=== PATIENT | female | born 1950 | race Asian ===

== ENCOUNTER 2018-12-17 11:00 | Inpatient (IN) | payer SELFPAY ==
[~2018-12-17] VITALS: Ht 149.9 cm; Wt 52.6 kg
--- NOTE | 2018-12-17 11:13 | NUR ---
Patient transferred to bed 8 via wheelchair after providing a urine specimen. RN evaluating patient at bedside.
[2018-12-17 11:20] VITALS: BP 109/58
[2018-12-17] MEDS ORDERED: NACL 0.9% 1,000 ML IV SCH (12:12)
[2018-12-17] MEDS ORDERED: NACL 0.9% 1,000 ML IV ONE (12:12)
[2018-12-17] MEDS ORDERED: ONDANSETRON 4 MG/2 ML VIAL IVP ONE (12:15)
[2018-12-17] MEDS ORDERED: MORPHINE SULFATE 2 MG/ML SYR IVP ONE (12:15)
[2018-12-17] MEDS ORDERED: PIPERACILLIN/TAZOBACTAM 3.375 GM in DEXT 5% MINI-BAG PLUS 50 ML IV ONE (12:15)
[2018-12-17] MEDS ORDERED: KETOROLAC 30 MG/ML VIAL IVP ONE (12:15)
--- NOTE | 2018-12-17 12:21 | NUR ---
X-Ray at bedside.
[2018-12-17] MEDS ORDERED: PIPERACILLIN/TAZOBACTAM 3.375 GM VIAL IV ONE (12:36)
[2018-12-17 12:38] LABS: BASOPHILS % (AUTO) 0.3 % (0.0-2.0); EOSINOPHILS # (AUTO) 0.1 K/uL (0-0.4); EOSINOPHILS % (AUTO) 2.4 % (0.0-4.0); HEMATOCRIT 40.5 % (36-48); HEMOGLOBIN 13.8 g/dL (12.0-16.0); LYMPHOCYTES # (AUTO) 1.4 K/uL (2.5-16.5); LYMPHOCYTES % (AUTO) 32.4 % (20.5-51.1); MEAN CORPUSCULAR HEMOGLOBIN 32 pg (27-31); MEAN CORPUSCULAR HGB CONC 34 g/dL (33-37); MEAN CORPUSCULAR VOLUME 92.8 fL (80-94); MONOCYTES # (AUTO) 0.3 K/uL (0.8-1.0); MONOCYTES % (AUTO) 7.7 % (1.7-9.3); NEUTROPHILS # (AUTO) 2.6 K/uL (1.8-7.7); NEUTROPHILS % (AUTO) 57.2 % (42.2-75.2); PLATELET COUNT (AUTO) 271 K/uL (140-450); RED BLOOD CELL COUNT(AUTO) 4.36 MIL/uL (4.20-5.40); RED CELL DISTRIBUTION WIDTH 12.9 % (11.6-13.7); WHITE BLOOD COUNT (AUTO) 4.5 K/uL (4.8-10.8)
--- NOTE | 2018-12-17 12:42 | NUR ---
Patient taken to CT scan via gurney by [employer].
[2018-12-17 12:46] LABS: APPEARANCE,URINE CLEAR (CLEAR); BILIRUBIN,URINE NEGATIVE (NEGATIVE); BLOOD, URINE NEGATIVE (NEGATIVE); COLOR,URINE YELLOW (YELLOW); LEUKOCYTE ESTERASE ,URINE NEGATIVE (NEGATIVE); NITRITE, URINE NEGATIVE (NEGATIVE); UGLUCOSE NEGATIVE (NEGATIVE)
[2018-12-17 13:13] LABS: ALBUMIN 3.7 g/dL (3.4-5.0); CARBON DIOXIDE 29.1 mmol/L (21-32); CREATININE 0.8 mg/dL (0.6-1.3); TOTAL BILIRUBIN 0.5 mg/dL (0.0-1.0)
[2018-12-17 13:21] LABS: ANION GAP 8.9 (8-16)
[2018-12-17] MEDS ORDERED: HYDROcodone/APAP 5/325 MG 1 TAB TAB PO PRN (14:20)
[2018-12-17] MEDS ORDERED: DOCUSATE SODIUM 100 MG GELCAP PO PRN (14:20)
[2018-12-17] MEDS ORDERED: ACETAMINOPHEN 325 MG TAB PO PRN (14:20)
[2018-12-17] MEDS ORDERED: KETOROLAC 15 MG/ML VIAL IVP PRN (14:20)
[2018-12-17] MEDS ORDERED: ONDANSETRON 4 MG/2 ML VIAL IM/IVP PRN (14:20)
[2018-12-17] MEDS ORDERED: MELATONIN 3 MG TAB PO PRN (14:40)
--- NOTE | 2018-12-17 15:00 | NUR ---
RECEIVED BEDSIDE REPORT FROM [facility] ED RN, PT CAME TO UNIT ON GURNEY, PT AWAKE ALERT ORIENTED X4, SKIN INTACT, PINK, DRY, PT ABLE TO AMBULATE FROM HALLWAY TO BED WITH NO PAIN OR RESPIRATORY DISTRESS, IV ON L AC 22G, FLUSHES WELL, STARTED NS RUNNING 90ML/HR, NPO EXCEPT MEDS, BOWEL SOUND ACTIVE X4 QUADRANTS, LAST BM THIS AM, SON AT BEDSIDE BUT UNABLE TO TRANSLATE. UTILIZED [employer] HUMAN RESOURCES MANAGER TO COMMUNICATE WITH PT AND FAMILY TO OBTAIN MED HX, ORIENTED TO ROOM AND UNIT, CALL LIGHT WITHIN REACH, BED LOW, BED ALARM ON, RETURN DEMONSTRATION TO CALL LIGHT GOOD, WILL CONTINUE TO MONITOR
--- NOTE | 2018-12-17 15:25 | NUR ---
Patient will be admitted to care of Dr Tiwari. Admited to M/S room 128b. Belongings list completed. Report to APRYL Salgado.
[2018-12-17] MEDS: NACL 0.9% 1,000 ML IV SCH ×2 (15:30→23:48)
[2018-12-17 15:36] LABS: BARBITURATE, URINE NEG. ng/ml (NEG <=200); BENZODIAZEPINE, URINE NEG. ng/mL (NEG <=200); CANNABINOID, URINE NEG. ng/mL (NEG <=50); COCAINE, URINE NEG. ng/mL (NEG <=300); OPIATE, URINE NEG. ng/mL (NEG <=2000); PHENCYCLIDINE SCREEN,URINE NEG. ng/mL (NEG <=25)
[2018-12-17 15:52] LABS: PHOSPHORUS 3.2 mg/dL (2.5-4.9); THYROID STIMULATING HORMONE 1.07 uIU/mL (0.34-3.74)
[2018-12-17] MEDS ORDERED: PNEUMOCOCCAL VACCINE 23 MCG/0.5 ML VIAL IMVAC SCH (19:25)
--- NOTE | 2018-12-17 19:30 | NUR ---
RECEIVED BEDSIDE REPORT FROM DAY SHIFT RN ZAIRE. PATIENT IN BED, SON AT BEDSIDE, PATIENT FIJIAN SPEAKING. ON RA, NO SIGNS OF ACUTE DISTRESS OR PAIN. IV IN LEFT FA 18 G INFUSING NS AT. PATIENT TO BE NPO STATUS AT THIS TIME, CALL LIGHT WITHIN REACH, WILL CONTINUE TO MONITOR.
--- NOTE | 2018-12-17 19:37 | NUR ---
GAVE BEDSIDE REPORT TO PROPERTY ECONOMIST RN, PT IN STABLE CONDITION, CALL LIGHT WITHIN REACH
[2018-12-17] MEDS: metroNIDAZOLE 500 MG/NS PREMIX 100 ML IV SCH (20:58)
--- NOTE | 2018-12-17 20:58 | NUR ---
DUE FLAGYL GIVEN
--- NOTE | 2018-12-17 23:00 | NUR ---
PATIENT RESTING IN BED NO SIGNS OF DISTRESS, WILL CONTINUE TO MONITOR
[2018-12-17 23:47] VITALS: BP 124/75
--- NOTE | 2018-12-17 23:54 | NUR ---
V/S STABLE NO SIGNS OF PAIN WILL CONTINUE TO MONITOR
--- NOTE | 2018-12-18 01:39 | NUR ---
PT SLEEPING IN BED. NO SIGNS OF DISTRESS OR DISCOMFORT. EASILY AROUSABLE. NO COMPLAINTS AT THIS TIME. WILL CONTINUE TO MONITOR. CALL LIGHT WITHIN REACH.
--- NOTE | 2018-12-18 03:08 | NUR ---
PT IS SLEEPING IN BED. NO SIGNS OF DISTRESS OR DISCOMFORT. EASILY AROUSABLE. NO COMPLAINTS AT THIS TIME. WILL CONTINUE TO MONITOR. CALL LIGHT WITHIN REACH.
[2018-12-18] MEDS: metroNIDAZOLE 500 MG/NS PREMIX 100 ML IV SCH (04:04)
--- NOTE | 2018-12-18 04:07 | NUR ---
GAVE SCHEDULED FLAGYL. EDUCATED PT. TOLERATED WELL. WILL CONTINUE TO MONITOR. CALL LIGHT WITHIN REACH.
--- NOTE | 2018-12-18 06:06 | NUR ---
PATIENT AMBULATED TO RESTROOM, STEADY GAIT. ASSISTED BACK INTO BED.
[2018-12-18 07:05] LABS: BASOPHILS % (AUTO) 0.3 % (0.0-2.0); EOSINOPHILS # (AUTO) 0.1 K/uL (0-0.4); EOSINOPHILS % (AUTO) 3.3 % (0.0-4.0); HEMATOCRIT 37.3 % (36-48); HEMOGLOBIN 12.7 g/dL (12.0-16.0); LYMPHOCYTES # (AUTO) 1.4 K/uL (2.5-16.5); LYMPHOCYTES % (AUTO) 34.5 % (20.5-51.1); MEAN CORPUSCULAR HEMOGLOBIN 32 pg (27-31); MEAN CORPUSCULAR HGB CONC 34 g/dL (33-37); MEAN CORPUSCULAR VOLUME 92.4 fL (80-94); MONOCYTES # (AUTO) 0.4 K/uL (0.8-1.0); MONOCYTES % (AUTO) 8.7 % (1.7-9.3); NEUTROPHILS # (AUTO) 2.2 K/uL (1.8-7.7); NEUTROPHILS % (AUTO) 53.2 % (42.2-75.2); PLATELET COUNT (AUTO) 227 K/uL (140-450); RED BLOOD CELL COUNT(AUTO) 4.04 MIL/uL (4.20-5.40); WHITE BLOOD COUNT (AUTO) 4.1 K/uL (4.8-10.8)
--- NOTE | 2018-12-18 07:07 | NUR ---
ENDORSED PATIENT TO DAY SHIFT NURSE ZAIRE, PATIENT IN BED, STABLE.
--- NOTE | 2018-12-18 07:08 | NUR ---
RECEIVED BEDSIDE REPORT FROM SOLAR SALES CONSULTANT RN, PT RESTING COMFORTABLY IN BED IN NO PAIN, SHOWED PT WONKER DYER PAIN SCALE AND PT POINTED TO 0 PAIN FACE, ON RA IN NO RESPIRATORY DISTRESS, IV SITE L AC RUNNING NS AT 90ML/HR, SITE LOOKS CLEAN AND DRY, PT CONTINUES TO BE NPO EXCEPT MEDS, CALL LIGHT WITHIN REACH
[2018-12-18 07:46] LABS: MAGNESIUM 2.1 mg/dL (1.8-2.4); PHOSPHORUS 2.5 mg/dL (2.5-4.9)
[2018-12-18 08:00] VITALS: BP 125/74
[2018-12-18] MEDS ORDERED: LACTOBACILLUS RHAMNOSUS GG 1 EACH CAP PO SCH (09:00)
[2018-12-18 09:01] LABS: ANION GAP 12.9 (8-16); CARBON DIOXIDE 24.4 mmol/L (21-32); CREATININE 0.8 mg/dL (0.6-1.3); POTASSIUM 4.3 mmol/L (3.5-5.1)
[2018-12-18 09:08] LABS: CHOL/HDL RATIO 4.7 (1-4.5)
--- NOTE | 2018-12-18 09:45 | NUR ---
Received call from service clerk from Dr. Palmer's office informing nurse that pt has a scheduled f/u appt with Dr. Palmer on 12/25/18 @ 4pm. [employer] also inquiring about pt's insurance. Per pt's records she is "self-pay". Per service clerk, pt will need to pay 60$ to see the doctor. [employer] requests to inform pt to bring [employer] dry wall finisher during appt. Will notify pt.
--- NOTE | 2018-12-18 11:45 | NUR ---
VERBAL AND WRITTEN DC INSTRUCTIONS GIVEN TO PT AND SON VIA [employer] CLIENT CARE MANAGER, PT AND SON AGREED WITH DC PLAN. L AC IV DC, PNEUMOCOCCAL VACCINE GIVEN L DELTOID, NAME BAND REMOVED, ALL BELONGINGS WITH PT. DC TO HOME BY PRIVATE VEHICLE. PT AMBULATED OFF UNIT WITH STEADY GAIT.
== END 2018-12-18 11:45 | disposition home or self-care (01) | DRG 392 ==
LOC: MED 11:00 → MMU 14:31 → MTU 20:05
PROVIDERS: ADMIT General Practice; ATTEND General Practice
PROC: 3E0234Z Introduction of Serum, Toxoid and Vaccine into Muscle, Percutaneous Approach (ICD-10-PCS; principal; 2018-12-17)
DX: R10.9 Unspecified abdominal pain (principal); E87.1 Hypo-osmolality and hyponatremia; G47.00 Insomnia, unspecified; E78.00 Pure hypercholesterolemia, unspecified; M81.0 Age-related osteoporosis without current pathological fracture; E78.5 Hyperlipidemia, unspecified; E87.8 Other disorders of electrolyte and fluid balance, not elsewhere classified; E83.51 Hypocalcemia; J84.10 Pulmonary fibrosis, unspecified; Z82.3 Family history of stroke; Z23 Encounter for immunization
CPT/HCPCS: 36415; 36600; 71045; 71250; 76705; 80048; 80053; 80305; 81003; 82150; 82803; 83036; 83605; 83690; 83735; 83880; 84100; 84443; 84484; 85025; 87040; 87081; 87086; 90732; 93005; 96365; 96375; 99285; J0696; J1885; J2270; J2405; J2543; J3490; J7030; J7060; Q0092

== ENCOUNTER 2020-06-01 08:43 | Day surgery (SDC) | payer MEDICARE, OTHER, SELFPAY ==
[~2020-06-01] VITALS: Ht 152.4 cm; Wt 48.5 kg
[2020-06-01] MEDS ORDERED: fentaNYL citrate 0.05 MG/ML VIAL ONE (09:44)
[2020-06-01] MEDS ORDERED: MIDAZOLAM 5 MG/5 ML VIAL ONE (09:44)
[2020-06-01] MEDS ORDERED: diphenhydrAMINE 50 MG/ML VIAL ONE (09:44)
[2020-06-01] MEDS ORDERED: LIDOCAINE 2% 100 MG/5 ML UJET TP ONE (09:44)
[2020-06-01] MEDS ORDERED: MIDAZOLAM 2 MG/2 ML VIAL IVP ONE (13:25)
[2020-06-01] MEDS ORDERED: fentaNYL citrate 0.05 MG/ML VIAL IVP ONE (13:25)
== END 2020-06-01 10:35 | disposition home or self-care (01) ==
LOC: MDS 08:43 → MMU 08:44 → MDS 10:35
PROVIDERS: ATTEND Internal Medicine Gastroenterology
DX: R10.9 Unspecified abdominal pain (principal); I10 Essential (primary) hypertension; E78.5 Hyperlipidemia, unspecified; Z20.828 Contact with and (suspected) exposure to other viral communicable diseases
CPT/HCPCS: 45378; J2250; J3010; U0003; J1200

== ENCOUNTER 2020-11-08 07:55 | Emergency (ER) | payer MEDICARE, OTHER ==
[~2020-11-08] VITALS: Ht 152.4 cm; Wt 49.9 kg
[2020-11-08 07:57] VITALS: BP 156/85
--- NOTE | 2020-11-08 08:13 | NUR ---
PT W/C ASSISTED TO BED 11.
--- NOTE | 2020-11-08 08:13 | NUR ---
Patient being evaluated by DR CONDE at bedside.
[2020-11-08] MEDS ORDERED: KETOROLAC 60 MG/2 ML VIAL IM ONE (08:20)
--- NOTE | 2020-11-08 08:26 | NUR ---
70 y/o F coming in from home with c/c left hip pain. Patient states 10/10, dull/constant, left hip pain that radiates down her left thigh. Patient states this pain as sudden onset three days ago, and worsens when walking. Patient states pain is relieved by lying on unaffected side. Pt denies taking any medication prior to arrival. Pt denies any falls, trauma/injury, N/V/D, fever, chills, urinary symptoms, chest pain, shortness of breath. Pt placed onto blood pressure cuff, pulse ox. Bed locked in lowest position, side rails x 1. Dr. Angeles evaluating patient at this time. PMH: HDL, osteoporeosis Meds: Gabapentin, naproxen, Baclofen, fenofibrate NKA Sx: Denies
[2020-11-08] MEDS ORDERED: ACET-8386 PO (08:30)
--- NOTE | 2020-11-08 09:24 | NUR ---
Patient verbalized no pain at this time while lying on right side. States 0/10 pain.
[2020-11-08 09:35] VITALS: BP 147/72
--- NOTE | 2020-11-08 09:35 | NUR ---
Patient discharged with v/s stable. Written and verbal after care instructions given and explained. Patient alert, oriented and verbalized understanding of instructions. Wheel Chair Assisted with to car. All questions addressed prior to discharge. ID band removed. Patient advised to follow up with PMD. Rx of Hydrocodone/Acetaminophen given. Patient educated on indication of medication including possible reaction and side effects. Opportunity to ask questions provided and answered.
== END 2020-11-08 09:35 | disposition home or self-care (01) ==
LOC: MED 07:55
DX: M25.552 Pain in left hip (principal)
CPT/HCPCS: 96372; 99283; J1885